=== PATIENT | female | born 1960 | race Caucasian/White ===

== ENCOUNTER 2017-03-30 20:23 | Emergency (ER) | payer BC ==
[~2017-03-30] VITALS: Ht 160 cm; Wt 127.3 kg
[~2017-03-30 20:23] MED LIST: AZOR 5/20 MG1 TABLET PO; FERRETTS18 MG PO; LIPITOR20 MG PO; NUVIGIL250 MG PO; PROAIR RESPICL90 MCG IH; PROTONIX40 MG PO; RHINOCORT AQUA8.6 G1 NS; VENLAFAXINE225 MG PO; VITAMIN D50000 UNI4 PO
[2017-03-30 20:47] LABS: HEMATOCRIT 39.1 % (36.0-46.0); HEMOGLOBIN 12.7 G/DL (11.9-15.5); MCH 27.5 PG (29.0-34.0); MCHC 32.5 G/DL (30.0-36.0); MCV 84.6 FL (83-99); PLATELET COUNT 320 K/uL (156-360); RBC DIS.WIDTH-CV 13.5 % (11.8-14.6); RBC DIS.WIDTH-SD 41.7 % (39-53); RED BLOOD COUNT 4.62 M/uL (3.80-5.20); WHITE BLOOD COUNT 9.8 K/uL (4.1-10.2)
[2017-03-30 20:59] LABS: CHLORIDE 103 mEq/L (99-109); POTASSIUM 3.9 mEq/L (3.7-5.4); SODIUM 138 mEq/L (136-147)
[2017-03-30 21:01] LABS: GLUCOSE 106 mg/dL (70-99)
[2017-03-30 21:04] LABS: CREATININE 0.9 mg/dL (0.6-1.3); GFR ESTIMATE (CALCULATED) > 59 mL/min/
[2017-03-30 21:05] LABS: UREA NITROGEN (BUN) 13 mg/dL (9-23)
[2017-03-30 21:08] LABS: TROP-I INTERPRETATION NEGATIVE; TROPONIN-I 0.06 ng/mL (0.0-0.30)
[2017-03-30] MEDS ORDERED: ZITHROMAX Z-PA250 MG PO (21:28)
[2017-03-30] MEDS ORDERED: VENTOLIN HFA18 GM IH (21:28)
[2017-03-30] MEDS ORDERED: DECADRON4 MG PO (21:28)
[2017-03-30 23:15] VITALS: BP 148/91
== END 2017-03-30 23:29 | disposition home or self-care (01) ==
LOC: EME 20:23
DX: J38.6 Stenosis of larynx (principal); J06.9 Acute upper respiratory infection, unspecified; J45.909 Unspecified asthma, uncomplicated; I10 Essential (primary) hypertension
CPT/HCPCS: 71020; 80048; 84484; 85027; 93005; 94640; 99281; 99284; J1100